=== PATIENT | male | born 1975 | race Caucasian/White ===

== ENCOUNTER 2017-07-12 09:22 | Emergency (ER) | payer BC ==
[2017-07-12 10:43] VITALS: BP 126/80
--- NOTE | 2017-07-12 11:36 | UC ---
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 associated with fever chills w/ o cough and cervical LN tenderness, strep has been going around in school - History of Current Complaint Chief Complaint: UCGeneralIllness Stated Complaint: SORE THROAT Time Seen by Provider: 07/12/17 11:12 Hx Obtained From: Patient Onset/Duration: Gradual Onset Severity: Moderate Pain Intensity: 8 Cough: None - Allergies/Home Medications Allergies/Adverse Reactions: Allergies Allergy/AdvReac Type Severity Reaction Status Date / Time No Known Allergies Allergy Verified 07/12/17 10:43 Home Medications: Home Medications Dextroamphetamine/Amphetamine [Adderall 30 mg-] 30 mg PO DAILY 07/12/17 [ History Confirmed 07/12/17] PMH/Surg Hx/FS Hx/Imm Hx - Additional Past Medical History Additional PMH: NONE Previously Healthy: Yes - Surgical History Surgical History: None - Social History Alcohol Use: Rare Substance Use Type: None Smoking Status (MU): Never Smoked Tobacco Review of Systems Constitutional: Fever, Chills Skin: Negative Eyes: Negative ENT: Sore Throat Respiratory: Negative Cardiovascular: Negative Gastrointestinal: Negative Genitourinary: Negative Motor: Negative Neurovascular: Negative Musculoskeletal: Negative Neurological: Negative Psychological: Negative All Other Systems Reviewed And Are Negative: Yes Physical Exam Triage Information Reviewed: Yes Appearance: Ill-Appearing Vital Signs: Initial Vital Signs Temp 36.8 C 07/12/17 10:39 Pulse 85 07/12/17 10:39 Resp 16 07/12/17 10:39 BP 126/80 07/12/17 10:39 Pulse Ox 98 07/12/17 10:39 Eye Exam: Normal ENT: Positive: Pharyngeal erythema, Tonsillar swelling. Negative: Tonsillar exudate Dental Exam: Normal Dental: Positive: Cervical Lymphadenopathy Neck exam: Normal Neck: Positive: 1 Respiratory Exam: Normal Cardiovascular Exam: Normal Abdominal Exam: Normal Musculoskeletal Exam: Normal Neurological Exam: Normal Psychological Exam: Normal Skin Exam: Normal Throat Pain/Nasal Course/Dx - Course Course Of Treatment: Rapid strep positive - Differential Dx/Diagnosis Provider Diagnoses: strep pharyngitis Discharge - Discharge Plan Condition: Stable Disposition: HOME Prescriptions: Amoxicillin PO (*) [Amoxicillin 875 MG (*)] 875 mg PO BID 7 Days #14 tab Patient Education Materials: Strep Throat (ED) Referrals: César Pinto MD [Primary Care Provider] -
== END 2017-07-12 11:42 | disposition home or self-care (01) ==
LOC: UCEAST 09:22
DX: J02.0 Streptococcal pharyngitis (principal)
CPT/HCPCS: 87651; 99212; G0463